=== PATIENT | male | born 1960 | race Caucasian/White ===

== ENCOUNTER 2018-03-16 09:42 | Emergency (ER) | payer BC, OTHER ==
--- NOTE | 2018-03-16 10:07 | ED Physician Documentation ---
Hand Injury - HISTORIAN Historian: patient - HPI Stated Complaint: Lt wrist pain, non-traumatic Chief Complaint: Hand Injury Additional Information: Patient presents to ED with a 2 day history of left hand pain. He denies any injury or repetitive motions. He states he had difficulty holding objects due to pain. Onset: days ago (2) Where: home Severity: mild Duration: persistent since Context: other (no injury ) Location of Injury: L hand Modifying Factors: pain on movement Further Comments: no - ROS CONST: no problems GI/: denies: nausea, vomiting NEURO: none CVS/RESP: none EYES/ENT: none MS/SKIN/LYMPH: none - PAST HX Past History: Rt handed Allergies/Adverse Reactions: Allergies Allergy/AdvReac Type Severity Reaction Status Date / Time ranitidine Allergy Verified 03/16/18 10:01 Home Medications: Ambulatory Orders Medication Instructions Recorded Carvedilol [Coreg] 6.25 mg PO D 03/16/18 Duloxetine HCl 30 mg PO D 03/16/18 Furosemide [Lasix] 20 mg PO D 03/16/18 Lisinopril [Zestril] 40 mg PO D 03/16/18 Naproxen 500 mg PO BID PRN #60 tablet 03/16/18 Omeprazole 40 mg PO D 03/16/18 Topiramate 25 mg PO D 03/16/18 - SOCIAL HX Smoking History: non-smoker Alcohol Use: none Drug Use: none - FAMILY HX Family History: none - VITAL SIGNS Vital Signs: Vital Signs Temp Pulse Resp BP Pulse Ox 98.1 F 75 16 144/83 98 03/16/18 09:42 03/16/18 09:42 03/16/18 09:42 03/16/18 09:42 03/16/18 09:42 - REVIEWED ASSESSMENTS Nursing Assessment Reviewed: Yes Vitals Reviewed: Yes ED Results Lab/Radiology - Radiology Radiology Impressions: Left hand 3 views Clinical history: Pain for 2 days There is moderate osteoarthritis of the distal and proximal interphalangeal joint more pronounced in the left index finger. Osteoarthritic changes noted at the of the left wrist. No fractures. Impression: Osteoarthritis Electronically signed on Mar 16, 2018 10:30:29 AM OPHTHALMIC LENS INSPECTOR by: Reuben Zuniga - Orders Orders: ED Orders Category Date Time Status HAND 3 VIEWS OR MORE [RAD] Stat Exams 03/16/18 Ordered Hand Injury Physical Exam - Exam General Appearance: no acute distress, alert Hand: soft tissue tenderness, swelling (base of thumb), pain Wrist: normal inspection, non-tender, no evidence of injury Neuro: sensation nml, motor nml Vascular: no vascular compromise Tendons: tendon function nml Forearm/Elbow/Arm: uninjured above wrist Skin: warm/dry, normal color Head/ENT: nml inspection Neck/Back: nml inspection Resp/CVS: chest non-tender, breath sounds nml, heart sounds nml Abdomen: non-tender Discharge Clincal Impression: Osteoarthritis of left wrist Qualifiers: Osteoarthritis type: primary Qualified Code(s): M19.032 - Primary osteoarthritis, left wrist Prescriptions: Naproxen 500 mg PO BID PRN #60 tablet PRN Reason: Pain Referrals: Primary Doctor,No [Primary Care Provider] - 2 Days Additional Instructions: 1. Apply Ice or heat for comfort 2. Topical aspirin creme may be used also 3. Tylenol as needed for pain, may be used with Naprosyn 4. Follow up with PCP within 1 week. Condition: Stable Decision to Admit: NO Date of Decison to Admit: 03/16/18 Decision Time: 10:35
[2018-03-16 11:00] VITALS: BP 138/71
--- NOTE | 2018-03-16 20:02 | Diagnostic Imaging Report ---
WILTON LANDAVERDE [facility] [id number] [facility] [address] [id number] Report Submission Date: Mar 16, 2018 10:30:29 AM ORNAMENT STITCHER Patient Study Name: ANDREW ROJAS Date: Mar 16, 2018 10:08:07 AM ORNAMENT STITCHER Modality Type: DX Gender: M Description: UPPER EXTREMITY : 56 Institution: [facility] Physician: WILTON LANDAVERDE Left hand 3 views Clinical history: Pain for 2 days There is moderate osteoarthritis of the distal and proximal interphalangeal joint more pronounced in the left index finger. Osteoarthritic changes noted at the of the left wrist. No fractures. Impression: Osteoarthritis Electronically signed on Mar 16, 2018 10:30:29 AM ORNAMENT STITCHER by: Reuben KRAMER
== END 2018-03-16 10:45 | disposition home or self-care (01) ==
LOC: ED 09:42
DX: M19.032 Primary osteoarthritis, left wrist (principal)
CPT/HCPCS: 73130; 99283